=== PATIENT | female | born 1945 | race Caucasian/White ===

== ENCOUNTER → 2016-08-13 | Outpatient (CLI) | payer BC ==
[2016-08-13 13:31] LABS: ESTIMATED AVERAGE GLUCOSE 117 mg/dl; HA1C FLAG Normal (Normal)
[2016-08-13 15:09] LABS: CALCIUM 8.9 mg/dl (8.5-10.1)
[2016-08-13 15:13] LABS: ALT/SGPT 24 U/L (12-78); AST/SGOT 11 U/L (15-37); BLOOD UREA NITROGEN 20 mg/dl (7-18); BUN/CREATININE RATIO 24.6 (10-20); CARBON DIOXIDE 26 mmol/L (21-32); CHLORIDE 112 mmol/L (98-107); GLUCOSE 116 mg/dl (70-99); POTASSIUM 4.4 mmol/L (3.5-5.1); SODIUM 145 mmol/L (136-145)
[2016-08-13 15:16] LABS: ALB/GLOB RATIO 1.2 (0.9-2); ALKALINE PHOSPHATASE 71 U/L (45-117); CHOLESTEROL 163 mg/dl (0-200); CHOLESTEROL/HDL RATIO 3.4; HDL CHOLESTEROL 48 mg/dl; LDL CHOLESTEROL CALCULATED 97 mg/dl; TRIGLYCERIDES 88 mg/dl (0-150); VERY LOW DENSITY LIPOPROT CALC 18 mg/dl
--- NOTE | 2016-08-21 11:44 | CODING QUERY MEDICAL NECESSITY ---
CQSUPPORTING DIAGNOSIS NEEDED A supporting diagnosis is required for the test/procedure performed on this patient in order for us to be reimbursed by the patient's insurance. Please provide a supporting diagnosis for the following test/procedure listed below next to the test name along with your signature. *If there is no additional diagnosis for this patient that would support the following test/procedure please document that below next to the test/procedure. Test(s)/Procedure(s) that require a supporting diagnosis: DOS 08/13/16 GLYCATED HEMOGLOBIN TEST Provider Signature: Date: Thank you Audrey [facility] Once completed, please kindly fax back to [phone] For questions please call [phone]
== END | disposition home or self-care (01) ==
LOC: C.LABPVFM 09:29
PROVIDERS: ATTEND Internal Medicine
DX: E55.9 Vitamin D deficiency, unspecified (principal); Z11.59 Encounter for screening for other viral diseases; R73.01 Impaired fasting glucose